=== PATIENT | female | born 1965 | race Caucasian/White ===

== ENCOUNTER 2018-07-21 19:38 | Emergency (ER) | payer MEDICAID ==
[~2018-07-21] VITALS: Ht 162.6 cm; Wt 77.1 kg
[2018-07-21] MEDS ORDERED: [UNRECOGNIZED DRUG - OTHER] (19:50)
[2018-07-21] MEDS ORDERED: BUSPIRONE 10 MG (19:50)
[2018-07-21] MEDS ORDERED: ESCI20TA PO (19:52)
[2018-07-21] MEDS ORDERED: BUSP15TA3 PO (19:52)
[2018-07-21] MEDS ORDERED: DOXE10CA2 PO (19:52)
[2018-07-21] MEDS ORDERED: KLONOPIN 1 MG (19:52)
[2018-07-21] MEDS ORDERED: ASPIRIN EC 81 MG TABLET.DR PO SCH (20:13)
[2018-07-21] MEDS ORDERED: IV NS 1000 ML 1,000 ML IV ONE (20:15)
[2018-07-21] MEDS ORDERED: HYDROCODONE/APAP 5-325MG TABLET PO ONE (20:15)
[2018-07-21] MEDS ORDERED: ONDANSETRON IV *ER 4 MG/2 ML VIAL IV ONE (20:15)
[2018-07-21 20:23] LABS: BASOPHILS % (AUTO) 0.4 % (0.0-2.0); EOSINOPHILS # (AUTO) 0.2 K/uL (0.0-0.7); HEMOGLOBIN 14.8 g/dL (10.9-14.3); LYMPHOCYTES # (AUTO) 1.8 K/uL (20.0-40.0); LYMPHOCYTES % (AUTO) 31.1 % (20.5-51.5); MEAN CORPUSCULAR HEMOGLOBIN 30.5 uug (24.7-32.8); MEAN CORPUSCULAR HGB CONC 34 g/dL (32.3-35.6); MEAN CORPUSCULAR VOLUME 90.9 fL (75.5-95.3); MONOCYTES # (AUTO) 0.4 K/uL (2.0-10.0); MONOCYTES % (AUTO) 6.2 % (0.0-11.0); NEUTROPHILS # (AUTO) 3.5 K/uL (1.8-8.9); NEUTROPHILS % (AUTO) 59.3 % (38.5-71.5); PLATELET COUNT (AUTO) 228 K/uL (179-408); RED BLOOD CELL COUNT(AUTO) 4.84 MIL/uL (3.63-4.92); WHITE BLOOD COUNT (AUTO) 5.9 K/uL (3.8-11.8)
[2018-07-21 20:26] LABS: POTASSIUM 3.9 mmol/L (3.5-5.1)
[2018-07-21] MEDS ORDERED: ASPIRIN EC 81 MG TABLET.DR PO ONE (20:29)
[2018-07-21] MEDS ORDERED: HYDROCODONE/APAP 5-325MG TABLET ONE (20:29)
[2018-07-21] MEDS ORDERED: ONDANSETRON 4 MG/2 ML VIAL ONE (20:29)
[2018-07-21 20:33] LABS: BILIRUBIN,TOTAL 0.2 mg/dL (0.2-1.0); TOTAL PROTEIN, SERUM 7.4 g/dL (6.4-8.2)
--- NOTE | 2018-07-21 20:38 | NUR ---
Patient comes in from home, patient is AAOx4. Speaking in complete sentences. Able to make needs known. Responsive to verbal and tactile stimuli. Patient is able to speak/ambulate without increased work of breathing/acute distress. Patient comes in with c/o SOB starting 1700 today. She states she also developed a headache at this time. She has not taken any analgesics [employer], she states there are no agrevating/relieving factors for this issue. Patient respirations are even and unlabored upon arrival. Patient is noted sitting in bed, SaO2 on R/a @ 99 %, HR is 81 w/ NSR on youth nutritional monitor. 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 Patient denies CP/Fevers/Chills/N/V/D. No cardiovascular distress noted. ABD is soft and nondistended, bowel sounds + and normoactive. No integumentary issues noted. Denies recent illness at this time. Patient Hx includes Anxiety disorder. Patient in bed, bed in lowest position, siderails up x2. Call light is within reach.
[2018-07-21] MEDS ORDERED: ALBUTEROL SULFATE 2.5 MG/ 0.5 ML NEBU NEB ONE (21:10)
[2018-07-21] MEDS ORDERED: methylPREDNISolone SOD SUCC 125 MG/2 ML VIAL IV ONE (21:15)
[2018-07-21] MEDS ORDERED: IPRATROPIUM BROMIDE 0.5 MG/2.5 ML NEBU NEB ONE (21:15)
[2018-07-21] MEDS ORDERED: IPRATROPIUM BROMIDE 0.5 MG/2.5 ML NEBU ONE (21:18)
[2018-07-21] MEDS ORDERED: ALBUTEROL SULFATE 2.5 MG/3 ML NEBU ONE (21:18)
[2018-07-21] MEDS ORDERED: methylPREDNISolone SOD SUCC 125 MG/2 ML VIAL ONE (21:19)
--- NOTE | 2018-07-21 21:32 | NUR ---
RT at bedside, breathing tx ongoing and well tolerated.
[2018-07-21 22:02] LABS: ABG BASE EXCESS 0.8 mmol/L; ABG HCO3 27.3 mmol/L; ABG PCO2 50.9 mmHg (35.0-45.0); ABG PH 7.347 (7.350-7.450); ABG PO2 31.9 mmHg (75.0-100.0); ABG SITE LEFT RADIAL; ABG TOTAL HEMOGLOBIN 14.2 G/dL (12.0-16.0); COHb 3.5 % (0.5-1.5); MetHb 0.4 % (0.0-1.5); O2Hb 63.1 % (94.0-97.0); VENT MODE ROOM AIR
--- NOTE | 2018-07-21 22:02 | NUR ---
patient in bed, no acute distress noted. VSS
[2018-07-21] MEDS ORDERED: LEVOFLOXACIN 500 MG TABLET PO ONE (22:28)
[2018-07-21] MEDS ORDERED: LEVOFLOXACIN 500 MG TABLET ONE (22:28)
--- NOTE | 2018-07-21 22:44 | NUR ---
Patient discharged to home in stable conditon. Written and verbal after care instructions given. Patient verbalizes understanding of instructions. Ambulated from ER with stable gait, all belongings with patient. Peripheral IV removed prior to d/c. Patient to be driven home by taxi
[2018-07-21 22:46] VITALS: BP 128/78
== END 2018-07-21 22:47 | disposition home or self-care (01) ==
LOC: ER 19:38
DX: J21.9 Acute bronchiolitis, unspecified (principal); R51 Headache; Z90.89 Acquired absence of other organs
CPT/HCPCS: 36600; 70030-TC; 71045; 85025; 85610; 93005; A4663; J2405; J2930; J3590; J7030

== ENCOUNTER 2018-07-31 16:03 | Emergency (ER) | payer MEDICAID ==
[~2018-07-31] VITALS: Ht 162.6 cm; Wt 77.1 kg
[~2018-07-31 16:03] MED LIST: BUSP15TA3 PO; DOXE10CA2 PO; ESCI20TA PO; KLONOPIN 1 MG
--- NOTE | 2018-07-31 16:18 | NUR ---
PT IS IN ROOM #2A. DR RAMSAY EVALUATED THE PT.
[2018-07-31] MEDS ORDERED: KETOROLAC TROMETHAMINE 30 MG INJ ONE (16:25)
[2018-07-31 16:30] VITALS: BP 136/86
[2018-07-31] MEDS ORDERED: KETOROLAC TROMETHAMINE 30 MG INJ IM ONE (16:30)
--- NOTE | 2018-07-31 16:33 | NUR ---
PT WAS D/C TO HOME. D/C INSTRUCTIONS GIVEN TO THE PT.
== END 2018-07-31 16:37 | disposition home or self-care (01) ==
LOC: ER 16:05
DX: R51 Headache (principal); J34.0 Abscess, furuncle and carbuncle of nose; F17.200 Nicotine dependence, unspecified, uncomplicated; Z90.89 Acquired absence of other organs
CPT/HCPCS: A4663; J1885

== ENCOUNTER 2018-09-19 15:21 | Emergency (ER) | payer MEDICAID ==
[~2018-09-19] VITALS: Ht 162.6 cm; Wt 81.6 kg
--- NOTE | 2018-09-19 16:01 | NUR ---
Patient is resting comfortably on gurney, no shortness of breath noted, pending MD evaluation
[2018-09-19] MEDS ORDERED: NITROGLYCERIN 0.4 MG/TAB BOTTLE SL ONE ×2 (16:30→16:37)
[2018-09-19] MEDS ORDERED: IV NORMAL SALINE 1000 ML BAG IV ONE (16:30)
[2018-09-19] MEDS ORDERED: ASPIRIN 325 MG TABLET PO ONE (16:30)
[2018-09-19 16:32] VITALS: BP 133/77
[2018-09-19] MEDS ORDERED: ASPIRIN 325 MG TABLET ONE (16:37)
[2018-09-19 16:50] LABS: BASOPHILS % (AUTO) 0.3 % (0.0-2.0); EOSINOPHILS # (AUTO) 0.1 K/uL (0.0-0.7); EOSINOPHILS % (AUTO) 0.5 % (0.0-7.0); HEMATOCRIT 41.1 % (31.2-41.9); HEMOGLOBIN 13.9 g/dL (10.9-14.3); LYMPHOCYTES # (AUTO) 1.5 K/uL (20.0-40.0); LYMPHOCYTES % (AUTO) 12.9 % (20.5-51.5); MEAN CORPUSCULAR HEMOGLOBIN 30.3 uug (24.7-32.8); MEAN CORPUSCULAR HGB CONC 34 g/dL (32.3-35.6); MEAN CORPUSCULAR VOLUME 89.7 fL (75.5-95.3); MONOCYTES # (AUTO) 0.6 K/uL (2.0-10.0); MONOCYTES % (AUTO) 5.1 % (0.0-11.0); NEUTROPHILS # (AUTO) 9.7 K/uL (1.8-8.9); NEUTROPHILS % (AUTO) 81.2 % (38.5-71.5); PLATELET COUNT (AUTO) 185 K/uL (179-408); RED BLOOD CELL COUNT(AUTO) 4.58 MIL/uL (3.63-4.92)
[2018-09-19 16:54] LABS: CREATININE 0.8 mg/dL (0.6-1.3); POTASSIUM 3.9 mmol/L (3.5-5.1)
[2018-09-19] MEDS ORDERED: ACETAMINOPHEN ES 500 MG TABLET ONE (16:54)
[2018-09-19] MEDS ORDERED: ACETAMINOPHEN 325 MG TABLET PO ONE (17:00)
[2018-09-19 17:06] LABS: BILIRUBIN,DIRECT 0.1 mg/dL (0.0-0.2); BILIRUBIN,TOTAL 0.4 mg/dL (0.2-1.0); TOTAL PROTEIN, SERUM 6.7 g/dL (6.4-8.2)
== END 2018-09-19 17:47 | disposition home or self-care (01) ==
LOC: ER 15:24
DX: R07.89 Other chest pain (principal); J06.9 Acute upper respiratory infection, unspecified; F17.200 Nicotine dependence, unspecified, uncomplicated; Z88.8 Allergy status to other drugs, medicaments and biological substances; Z91.89 Other specified personal risk factors, not elsewhere classified
CPT/HCPCS: 36415; 70030-TC; 71045; 85025; 85730; 93005; A4663; A9150; J7030

== ENCOUNTER 2018-09-19 23:40 | Emergency (ER) | payer MEDICAID ==
[~2018-09-19] VITALS: Ht 162.6 cm; Wt 81.6 kg
[2018-09-20] MEDS ORDERED: KETOROLAC TROMETHAMINE 30 MG INJ IM ONE (00:15)
[2018-09-20] MEDS ORDERED: ONDANSETRON ODT 4 MG TAB.RAPDIS SL ONE (00:15)
[2018-09-20 00:23] LABS: BASOPHILS % (AUTO) 0.2 % (0.0-2.0); EOSINOPHILS # (AUTO) 0.1 K/uL (0.0-0.7); EOSINOPHILS % (AUTO) 0.9 % (0.0-7.0); HEMATOCRIT 37.3 % (31.2-41.9); HEMOGLOBIN 12.8 g/dL (10.9-14.3); LYMPHOCYTES # (AUTO) 1.4 K/uL (20.0-40.0); LYMPHOCYTES % (AUTO) 13.7 % (20.5-51.5); MEAN CORPUSCULAR HEMOGLOBIN 30.4 uug (24.7-32.8); MEAN CORPUSCULAR HGB CONC 34 g/dL (32.3-35.6); MEAN CORPUSCULAR VOLUME 88.7 fL (75.5-95.3); MONOCYTES # (AUTO) 0.6 K/uL (2.0-10.0); NEUTROPHILS # (AUTO) 7.9 K/uL (1.8-8.9); NEUTROPHILS % (AUTO) 79.2 % (38.5-71.5); PLATELET COUNT (AUTO) 170 K/uL (179-408); RED BLOOD CELL COUNT(AUTO) 4.21 MIL/uL (3.63-4.92)
[2018-09-20] MEDS ORDERED: ONDANSETRON ODT 4 MG TAB.RAPDIS ONE (00:26)
[2018-09-20] MEDS ORDERED: KETOROLAC TROMETHAMINE 30 MG INJ ONE (00:26)
[2018-09-20 00:35] LABS: CREATININE 0.8 mg/dL (0.6-1.3); POTASSIUM 3.9 mmol/L (3.5-5.1)
[2018-09-20] MEDS ORDERED: PROCHLORPERAZINE EDISYLATE 10 MG/2 ML VIAL ONE (00:39)
[2018-09-20] MEDS ORDERED: LORAZEPAM 2 MG/1 ML VIAL ONE (00:39)
[2018-09-20 00:41] LABS: BILIRUBIN,DIRECT 0.1 mg/dL (0.0-0.2); BILIRUBIN,TOTAL 0.4 mg/dL (0.2-1.0); TOTAL PROTEIN, SERUM 6.1 g/dL (6.4-8.2)
[2018-09-20] MEDS ORDERED: LORAZEPAM 2 MG/1 ML VIAL IM ONE (00:45)
[2018-09-20] MEDS ORDERED: PROCHLORPERAZINE EDISYLATE 10 MG/2 ML VIAL IM ONE (00:45)
[2018-09-20] MEDS ORDERED: LEVOFLOXACIN 500 MG TABLET ONE (01:12)
[2018-09-20] MEDS ORDERED: LEVOFLOXACIN 500 MG TABLET PO ONE (01:15)
--- NOTE | 2018-09-20 01:47 | NUR ---
Patient discharged to home in stable conditon. Written and verbal after care instructions given. Patient verbalizes understanding of instructions.
== END 2018-09-20 01:49 | disposition home or self-care (01) ==
LOC: ER 23:41
DX: R51 Headache (principal); R10.30 Lower abdominal pain, unspecified; R07.9 Chest pain, unspecified; R00.1 Bradycardia, unspecified; F17.290 Nicotine dependence, other tobacco product, uncomplicated; Z90.89 Acquired absence of other organs
CPT/HCPCS: 36415; 80048; 80076; 84484; 85025; 93005; 96372 ×2; 99284; 99406; J0780; J1885; J2060; 70030-TC; A4663; Q0162